=== PATIENT | male | born 1965 | race African-American/Black ===

== ENCOUNTER 2018-03-24 00:51 | Emergency (ER) | payer BC ==
[~2018-03-24] VITALS: Ht 167.6 cm; Wt 91.3 kg
[2018-03-24 02:16] VITALS: BP 157/93
== END 2018-03-24 02:17 | disposition home or self-care (01) ==
LOC: EME 00:51
DX: S53.402A Unspecified sprain of left elbow, initial encounter (principal); W18.2XXA Fall in (into) shower or empty bathtub, initial encounter; Y93.E1 Activity, personal bathing and showering
CPT/HCPCS: 73060; 73080; 73090; 99281; 99283